=== PATIENT | male | born 1985 | race Caucasian/White ===

== ENCOUNTER 2021-10-15 15:39 | Emergency (ER) | payer OTHER, SELFPAY ==
[2021-10-15 15:47] VITALS: BP 129/104; PULSE 134; RESP 20; TEMP 37.3; O2SAT 99
--- NOTE | 2021-10-15 16:23 | ED.EAR ---
HPI - Ear Problem General Chief complaint: Ear Stated complaint: Sore Throat/Ear Pain Time Seen by Provider: 10/15/21 16:23 Source: patient and RN notes reviewed Mode of arrival: ambulatory Limitations: no limitations History of Present Illness HPI Narrative: 36-year-old male presented for complaint of multiple concerns stating each symptom has lasted about 2 days, onset 10/04/2021. Endorses symptoms started with a severe sore throat, now has severe right ear pain with decreased hearing, headache, right throat pain, weakness, left eye has been red and matted shut, nonproductive cough, fevers and chills, decreased appetite. He denies nausea, vomiting, diarrhea, shortness of breath or wheezing. He has taken Sudafed, Charity[place]Geddes and elderberry for symptoms. He has not been boosted for COVID. He has had his flu vaccine. Denies sick contacts. Related Data Home Medications Medication Instructions Recorded Confirmed empagliflozin [Jardiance] 25 mg PO DAILY 10/15/21 10/15/21 metoprolol succinate 25 mg PO DAILY 10/15/21 10/15/21 omeprazole 20 mg PO DAILY 10/15/21 10/15/21 Allergies Allergy/AdvReac Type Severity Reaction Status Date / Time No Known Allergies Allergy Verified 10/15/21 16:25 Review of Systems Review of Systems: All systems reviewed & are unremarkable except as noted in HPI and below Exam Narrative: GENERAL: Ill-appearing, nontoxic no acute distress. HEAD: Normocephalic EYES: Left conjunctival injection, mild clear drainage noted ENT: Mucous membranes moist. Right TM ruptured, erythematous canal, purulent drainage; left TM pearly rivas with dull light reflex; no tragal tenderness. Oropharynx erythematous without lesions or exudate, no drooling, no hoarseness, no trismus, uvula midline. No tripod positioning, muffled voice, soft palate or pharyngeal wall bulging NECK: Supple. No lymphadenopathy CHEST: Clear to auscultation, breath sounds equal. No wheezing, rhonchi, rales, or stridor. No respiratory distress, speaks in full sentences. HEART: Regular, tachycardic, No murmur heard. SKIN: Warm, dry, no rash. NEURO: Alert and oriented x3. PSYCH: Normal mood and affect Course Course Emergency Course: Patient is aware of diagnosis, understands and agrees to treatment plan. Anticipatory guidance given. Patient agrees to follow-up as directed and is aware of reasons to seek care at the emergency department. Portions of this record may have been created with voice recognition software Level of Care: Express Care Visit Vital Signs Vital signs: Vital Signs Temperature 99.2 F 10/15/21 15:47 Pulse Rate 134 H 10/15/21 15:47 Respiratory Rate 20 10/15/21 15:47 Blood Pressure 129/104 H 10/15/21 15:47 Pulse Oximetry 99 10/15/21 15:47 Temperature 99.2 F 10/15/21 15:47 Pulse Rate 134 H 10/15/21 15:47 Respiratory Rate 20 10/15/21 15:47 Blood Pressure 129/104 H 10/15/21 15:47 Pulse Oximetry 99 10/15/21 15:47 reviewed Medical Decision Making MDM Narrative Medical decision making narrative: Strep, COVID, flu test are negative. Hx tachycardia, states he takes metoprolol, denies palpitations, He has been experiencing symptoms for approximately 2 weeks; prescription for oral antibiotic. Right TM appears ruptured, will give ofloxacin drops along with a steroid. Also advised against medications with D due to hx HTN and tachycardia. He is advised to go to the ER for worsening symptoms or concerns, also advised to follow-up with PCP. Verbalizes understanding. Differential Diagnosis Differential Diagnosis: Influenza, covid, sinusitis, OM, strep pharyngitis, URI Vital Signs Vital Signs: Vital Signs Temperature 99.2 F 10/15/21 15:47 Pulse Rate 134 H 10/15/21 15:47 Respiratory Rate 20 10/15/21 15:47 Blood Pressure 129/104 H 10/15/21 15:47 Pulse Oximetry 99 10/15/21 15:47 Temperature 99.2 F 10/15/21 15:47 Pulse Rate 134 H 10/15/21 15:47 Respiratory Rate 20 10/15/21 15:47
== END 2021-10-15 17:00 | disposition home or self-care (01) ==
PROVIDERS: Emergency Provider Nurse Practitioner Family; PCP Internal Medicine
DX: H60.501 Unspecified acute noninfective otitis externa, right ear (principal); J02.9 Acute pharyngitis, unspecified; Z20.822 Contact with and (suspected) exposure to COVID-19
CPT/HCPCS: 87081; 87426; 87804; 87880; 99213; C9803; G0463